=== PATIENT | male | born 1965 | race Caucasian/White ===

== ENCOUNTER 2020-05-06 08:30 | Emergency (ER) | payer MEDICAID, MEDICARE ==
[~2020-05-06] VITALS: Ht 182.9 cm; Wt 97.8 kg
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
[2020-05-06] MEDS ORDERED: ONDANSETRON ODT 4 MG PO ONE (09:00)
[2020-05-06] MEDS ORDERED: HYDROcodone/APAP 5/325 TABLET PO PRN (09:00)
[2020-05-06] MEDS ORDERED: HYDROcodone/APAP 5/325 TABLET ONE (09:07)
[2020-05-06] MEDS ORDERED: ONDANSETRON ODT 4 MG ONE (09:07)
--- NOTE | 2020-05-06 09:14 | NUR ---
PATIENT MEDICATED PER EMAR, VSS, NADN
[2020-05-06 09:19] LABS: MEAN CORPUSCULAR HEMOGLOBIN 29.9 pg (27.5-34.5); MEAN CORPUSCULAR HGB CONC 33.8 g/dL (33.2-36.2); MEAN PLATELET VOLUME 9.6 fL (7.4-10.4); PLATELET COUNT 333 x10^3/uL (130-400); RED BLOOD COUNT 4.38 x10^6/uL (4.38-5.82); RED CELL DISTRIBUTION WIDTH 12.5 % (9.4-14.8)
[2020-05-06 09:56] LABS: MD YES
[2020-05-06 09:57] LABS: <PLATELET ESTIMATE> ADEQUATE; <PLT MORPHOLOGY> NORMAL PLT MORPH; <RBC MORPHOLOGY> NORMAL; EOS#(MANUAL) 0.25 x10^3/uL (0.0-0.4); EOS% (MANUAL) 1 % (1-7); LYMPH#(MANUAL) 1.98 x10^3/uL (1-3.4); LYMPHS% (MANUAL) 8 % (22-44); MONOS#(MANUAL) 0.99 x10^3/uL (0.3-2.7); MONOS% (MANUAL) 4 % (2-9); SEG#(MANUAL) 21.58 x10^3/uL (1.8-6.8); SEGS% (MANUAL) 87 % (42-75)
--- NOTE | 2020-05-06 10:06 | NUR ---
PATIENT ASLEEP, NADN, VSS
[2020-05-06 11:44] LABS: HCT (SEDRATE) 38.7 % (39.2-51.8)
[2020-05-06] MEDS ORDERED: NEOSPORIN OINT. PKT 1 PACKET ONE (12:28)
--- NOTE | 2020-05-06 12:44 | NUR ---
ANDRE HERRERA CLEANED AND DRESSED WOUNDS.
[2020-05-06 13:00] VITALS: BP 128/98
--- NOTE | 2020-05-06 13:02 | NUR ---
Patient/Caregiver given discharge instructions and they have confirmed that they understand the instructions. Patient ambulatory with steady gait. Did have complaints of being light headed when walking to d/, patients vitals rechecked next to triage were stable, patient stated he felt better after sitting, was able to abmulate to d/c .
== END 2020-05-06 13:03 | disposition home or self-care (01) ==
LOC: ED 08:52
DX: S81.831A Puncture wound without foreign body, right lower leg, initial encounter (principal); S71.132A Puncture wound without foreign body, left thigh, initial encounter; M25.512 Pain in left shoulder; R11.2 Nausea with vomiting, unspecified; D72.829 Elevated white blood cell count, unspecified; X58.XXXA Exposure to other specified factors, initial encounter; Y93.89 Activity, other specified; Y92.89 Other specified places as the place of occurrence of the external cause; Y99.8 Other external cause status
CPT/HCPCS: 36415; 71045; 73030; 85025; 85651; 86140; 99285; Q0162